=== PATIENT | male | born 1985 | race Caucasian/White ===

== ENCOUNTER 2016-09-14 21:47 | Emergency (ER) | payer OTHER ==
[~2016-09-14] VITALS: Ht 167.6 cm; Wt 98.7 kg
[2016-09-14] MEDS ORDERED: NEOM1SOL17 OT (22:09)
[2016-09-15] MEDS ORDERED: IBUPROFEN 600 MG TAB PO ONE (00:15)
[2016-09-15] MEDS ORDERED: DEBR6.5S4 AU (01:02)
[2016-09-15 01:08] VITALS: BP 138/85
== END 2016-09-15 01:10 | disposition home or self-care (01) ==
LOC: M ED 22:48
DX: H61.23 Impacted cerumen, bilateral (principal); F17.200 Nicotine dependence, unspecified, uncomplicated

== ENCOUNTER 2018-12-25 21:45 | Emergency (ER) | payer OTHER ==
[~2018-12-25] VITALS: Ht 170.2 cm; Wt 100.0 kg
[2018-12-25 21:45] VITALS: BP 150/83
[~2018-12-25 21:45] MED LIST: CORTOTSO OT; DEBR6.5S4 AU
[2018-12-25 22:27] LABS: BASO # 0.1 10^3/uL (0.0-0.2); BASO % 0.4 % (0.0-1.0); EOS # 0.2 10^3/uL (0.0-0.5); EOS % 1.6 % (0.0-3.0); HEMOGLOBIN 15.4 g/dl (13.5-17.5); LYMPH # 2.4 10^3/uL (1.5-5.0); LYMPH % 20.9 % (24.0-44.0); MEAN CORPUSCULAR HEMOGLOBIN 28.7 pg (27.0-33.0); MEAN CORPUSCULAR HGB CONC 32.8 g/dl (32.0-36.5); MEAN CORPUSCULAR VOLUME 87.5 fl (80.0-96.0); MONO # 1.1 10^3/uL (0.0-0.8); MONO % 9.8 % (0.0-5.0); NEUTROPHILS # 7.7 10^3/uL (1.5-8.5); PLATELET COUNT, AUTOMATED 279 10^3/uL (150-450); RED BLOOD COUNT 5.37 10^6/uL (4.30-6.10); VENOUS BASE EXCESS 2.2 (-2.0-2.0); VENOUS HCO3 28.9 MEQ/L (23.0-27.0); VENOUS O2 SATURATION 66.3 % (60.0-80.0); VENOUS PARTIAL PRESSURE CO2 52.5 mmHg (38.0-50.0); VENOUS PARTIAL PRESSURE O2 35.3 mmHg (30.0-50.0); VENOUS PH 7.359 UNITS (7.330-7.430); VENOUS STANDARD HCO3 25.5 MEQ/L; VENOUS TOTAL CO2 30.5 MEQ/L (24.0-28.0); WHITE BLOOD COUNT 11.5 10^3/uL (4.0-10.0)
[2018-12-25 22:48] LABS: BLOOD UREA NITROGEN 22 MG/DL (7-18); CALCIUM LEVEL 8.9 MG/DL (8.5-10.1); CARBON DIOXIDE LEVEL 30 MEQ/L (21-32); CHLORIDE LEVEL 103 MEQ/L (98-107); ETHYL ALCOHOL (ETHANOL) < 0.003 % (0.000-0.010); GLOMERULAR FILTRATION RATE > 60.0 (>60); GLUCOSE, FASTING 98 MG/DL (70-100); POTASSIUM SERUM 3.7 MEQ/L (3.5-5.1); SODIUM LEVEL 140 MEQ/L (136-145)
[2018-12-25 22:57] LABS: CARBOXYHEMOGLOBIN 1.7 % (0.0-1.5)
[2018-12-25] MEDS ORDERED: NS 1,000 ML IV ONE (23:00)
--- NOTE | 2018-12-25 23:14 | REPVR ---
PROCEDURE INFORMATION: Exam: CT Head without contrast Exam date and time: 12/25/2018 10:13 PM Clinical history: 33 years old, male; Pain; Headache; Additional info: Dysesthesias TECHNIQUE: Imaging protocol: Computed tomography of the head without contrast. Radiation optimization: All CT scans at this facility use at least one of these dose optimization techniques: automated exposure control; mA and/or kV adjustment per patient size (includes targeted exams where dose is matched to clinical indication); or iterative reconstruction. COMPARISON: No relevant prior studies available. FINDINGS: Brain: There is no evidence for an acute large vessel territorial infarct, intracranial hemorrhage, mass, mass effect, or herniation. The cortical gyration pattern, basal ganglia, thalami, and cerebellum are normal in appearance. Brainstem: Unremarkable. Midline shift: There is no midline shift. Ventricles: Normal. No ventriculomegaly. Bones/joints: Unremarkable. No acute fracture. Sinuses: Visualized sinuses are unremarkable. No fluid levels. The sinuses were not fully imaged. Mastoid air cells: Visualized mastoid air cells are well aerated. Auditory system: There are soft tissues opacities in the left external auditory canal, which likely represent cerumen. Soft tissues: Unremarkable. IMPRESSION: No acute intracranial abnormality. Electronically signed by: Mahendra Mosqueda On 12/25/2018 23:13:53 PM
--- NOTE | 2018-12-26 08:28 | ECGEPIP ---
[facility] - ED Test Date: 2018-12-25 Pat Name: ERIC SULLIVAN Department: Room: - Gender: Male [employer] Man: jean : 1985 Requested By: NELSON KUHN Order Number: [id number] Reading MD: Africa Mckenzie Measurements Intervals [place] Rate: 91 P: 42 NE: 136 QRS: -25 QRSD: 97 T: 31 QT: 342 QTc: 422 Interpretive Statements SINUS RHYTHM BORDERLINE LEFT AXIS DEVIATION NSTTW abnormalities NO PRIOR Electronically Signed on 12-26-2018 8:28:23 EDT by Africa Mckenzie
== END 2018-12-25 23:50 | disposition home or self-care (01) ==
LOC: M ED 21:45
DX: R29.810 Facial weakness (principal)
CPT/HCPCS: 70450; 80048; 82375; 82803; 85025; 93005; 99284; G0480

== ENCOUNTER 2023-09-16 12:40 | Emergency (ER) | payer OTHER ==
[~2023-09-16] VITALS: Ht 172.7 cm; Wt 109.5 kg
[2023-09-16] MEDS ORDERED: RABIES IMMUNE GLOBULIN 1500 INTERNATIONAL UNIT/5ML VIAL IM.IMMUN ONE (13:30)
[2023-09-16] MEDS: RABIES VACCINE HUMAN 2.5 INTERNATIONAL UNITS/ML VIAL IM ONE (14:36)
[2023-09-16] MEDS: RABIES IMMUNE GLOBULIN 300 INTERNATIONAL UNITS/1ML VIAL IM.IMMUN ONE (14:39)
[2023-09-16] MEDS: RABIES IMMUNE GLOBULIN 1500 INTERNATIONAL UNIT/5ML VIAL IM.IMMUN ONE (14:42)
[2023-09-16 14:47] VITALS: BP 138/91; TEMP 99; O2SAT 99
== END 2023-09-16 14:51 | disposition home or self-care (01) ==
LOC: M ED 12:40
DX: Z20.3 Contact with and (suspected) exposure to rabies (principal); Z29.14 Encounter for prophylactic rabies immune globulin; Z23 Encounter for immunization

== ENCOUNTER 2023-09-19 07:10 | Emergency (ER) | payer OTHER ==
[~2023-09-19] VITALS: Ht 172.7 cm; Wt 109.1 kg
[2023-09-19 07:12] VITALS: BP 133/89; TEMP 97.3; O2SAT 98
[2023-09-19] MEDS: RABIES VACCINE HUMAN 2.5 INTERNATIONAL UNITS/ML VIAL IM ONE (07:52)
== END 2023-09-19 08:16 | disposition home or self-care (01) ==
LOC: M ED 07:10
DX: Z29.14 Encounter for prophylactic rabies immune globulin (principal); Z23 Encounter for immunization; F17.210 Nicotine dependence, cigarettes, uncomplicated

== ENCOUNTER 2023-09-23 11:02 | Emergency (ER) | payer OTHER ==
[~2023-09-23] VITALS: Ht 172.7 cm; Wt 107.8 kg
[2023-09-23 11:02] VITALS: BP 119/82; TEMP 98.4; O2SAT 100
[2023-09-23] MEDS: RABIES VACCINE HUMAN 2.5 INTERNATIONAL UNITS/ML VIAL IM ONE (11:35)
== END 2023-09-23 12:00 | disposition home or self-care (01) ==
LOC: M ED 11:02
DX: Z29.14 Encounter for prophylactic rabies immune globulin (principal); Z23 Encounter for immunization

== ENCOUNTER 2023-09-30 08:20 | Emergency (ER) | payer OTHER ==
[~2023-09-30] VITALS: Ht 172.7 cm; Wt 108.1 kg
[2023-09-30 08:20] VITALS: BP 126/83; TEMP 96.1; O2SAT 98
[2023-09-30] MEDS: RABIES VACCINE HUMAN 2.5 INTERNATIONAL UNITS/ML VIAL IM ONE (09:43)
== END 2023-09-30 10:00 | disposition home or self-care (01) ==
LOC: M ED 08:20
DX: Z29.14 Encounter for prophylactic rabies immune globulin (principal); Z23 Encounter for immunization

== ENCOUNTER → 2024-07-12 | Outpatient (CLI) | payer OTHER ==
[~2024-07-12] MED LIST changes: -CORTOTSO OT; +NEOM1SOL17 OT
== END ==
LOC: M RAD 09:02
PROVIDERS: ATTEND Physician Assistant
DX: R10.12 Left upper quadrant pain (principal)